=== PATIENT | male | born 1965 | race Caucasian/White ===

== ENCOUNTER 2020-10-10 19:35 | Observation (INO) | payer OTHER ==
[~2020-10-10] VITALS: Ht 177.8 cm; Wt 93.4 kg
[2020-10-10 20:37] LABS: RED BLOOD COUNT 4.3 M/UL (4.20-5.50); WHITE BLOOD COUNT 10.4 K/UL (4.5-11.0)
[2020-10-10 20:53] LABS: BUN/CREATININE RATIO 14 (0-10)
[2020-10-11 00:53] LABS: BORDETELLA PARAPERTUSSIS Not Detected (Not Detectd); BORDETELLA PERTUSSIS Not Detected (Not Detectd); CHLAMYDIA PNEUMONIAE Not Detected (Not Detectd); CORONAVIRUS HKU1 Not Detected (Not Detectd); CORONAVIRUS NL63 Not Detected (Not Detectd); CORONAVIRUS OC43 Not Detected (Not Detectd); CORONOAVIRUS 229E Not Detected (Not Detectd); HUMAN METAPNEUMOVIRUS Not Detected (Not Detectd); HUMAN RHINOVIRUS/ENTEROVIRUS Not Detected (Not Detectd); INFLUENZA A Not Detected (Not Detectd); INFLUENZA B Not Detected (Not Detectd); MYCOPLASMA PNEUMONIAE Not Detected (Not Detectd); PARAINFLUENZA VIRUS 1 Not Detected (Not Detectd); PARAINFLUENZA VIRUS 2 Not Detected (Not Detectd); PARAINFLUENZA VIRUS 3 Not Detected (Not Detectd); PARAINFLUENZA VIRUS 4 Not Detected (Not Detectd); RESPIRATORY SYNCYTIAL VIRUS Not Detected (Not Detectd)
[2020-10-11 02:38] LABS: SARS-CoV-2 NOT DETECTED (Not Detectd)
[2020-10-11] MEDS ORDERED: CLOPIDOGREL75 MG PO (09:11)
[2020-10-11] MEDS ORDERED: DITROPAN 5 MG TA5 MG PO (09:11)
[2020-10-11] MEDS ORDERED: METOPROLOL SUCC25 MG PO (09:15)
[2020-10-11] MEDS ORDERED: HYDROCODON-ACE1 EAC6 PO (09:20)
[2020-10-11] MEDS ORDERED: PARAFON FORTE500 M1 PO (09:20)
[2020-10-11] MEDS ORDERED: NAPROXEN500 MG PO (09:22)
[2020-10-11] MEDS ORDERED: ZOCOR 40 MG TAB40 MG PO (09:25)
[2020-10-11] MEDS ORDERED: CITALOPRAM HBR40 MG PO (09:26)
[2020-10-11] MEDS ORDERED: FAMOTIDINE40 MG PO (09:27)
[2020-10-11] MEDS ORDERED: PROTONIX 40 MG40 M1 PO (09:27)
[2020-10-11] MEDS ORDERED: GABAPENTIN600 MG PO (09:27)
[2020-10-11] MEDS ORDERED: AUGMENTIN 875-1 EACH PO (14:34)
[2020-10-12 03:36] LABS: HEMOGLOBIN 11.5 gm/dl (14.0-17.5); WHITE BLOOD COUNT 8.9 K/UL (4.5-11.0)
[2020-10-12 03:42] LABS: RED BLOOD COUNT 3.83 M/UL (4.20-5.50)
[2020-10-12 04:04] LABS: BUN/CREATININE RATIO 10 (0-10)
[2020-10-12] MEDS ORDERED: IPRAT-ALBUT 0.5-3 ML INH (13:41)
== END 2020-10-12 16:35 | disposition home or self-care (01) ==
LOC: ER1 19:35 → MED SURG 4 22:09 → CDU 22:09 → MED SURG 4 10-11 00:17
PROVIDERS: Physician Assistant; Preventive Medicine Occupational Medicine; ADMIT Internal Medicine
DX: J18.9 Pneumonia, unspecified organism (principal); J96.00 Acute respiratory failure, unspecified whether with hypoxia or hypercapnia; I25.10 Atherosclerotic heart disease of native coronary artery without angina pectoris; J98.11 Atelectasis; I10 Essential (primary) hypertension; E87.1 Hypo-osmolality and hyponatremia; K40.91 Unilateral inguinal hernia, without obstruction or gangrene, recurrent; F32.9 Major depressive disorder, single episode, unspecified; M47.816 Spondylosis without myelopathy or radiculopathy, lumbar region; F11.20 Opioid dependence, uncomplicated; F17.210 Nicotine dependence, cigarettes, uncomplicated; Z20.822 Contact with and (suspected) exposure to COVID-19; Z95.5 Presence of coronary angioplasty implant and graft; Z85.828 Personal history of other malignant neoplasm of skin
CPT/HCPCS: 36415; 71045; 71260; 80048; 80053; 81001; 82550; 82553; 83605; 83690; 83874; 84484; 85025; 85652; 86140; 87086; 87633; 92610; 93005; 94640; 94664; 94760; 96374; 96375; 99285; G0378; J0456; J0696; J1650; J1885; J2405; J7030; Q9967; U0002